=== PATIENT | female | born 1990 | race American Indian/Alaskan Native ===

== ENCOUNTER 2017-05-25 20:50 | Emergency (ER) | payer OTHER ==
[2017-05-26 00:02] VITALS: BP 121/72
--- NOTE | 2017-05-26 00:04 | Emergency Department Report ---
ED N/V/D HPI - General Chief complaint: Nausea/Vomiting/Diarrhea Stated complaint: VOMITING Time Seen by Provider: 05/25/17 23:46 Source: patient Mode of arrival: Ambulatory Limitations: No Limitations - History of Present Illness Initial comments: 26-year-old -Stateless female that reports she is 12 weeks comes in stating that about 1830 she she had nausea onset she took Zofran and states vomited 20 minutes after taking it. Her last vomitus was around 8:30. She states that it was thick mucus with blood tinge. She denies any drooling no distress no fever no chills no abdominal pain no dizziness no cough no cramping or vaginal bleeding or vaginal pain. She does admit to a sore throat. Denies any cold-like symptoms. Past medical history of nothing current medications Zofran and vitamins says no known drug allergies. Her OB provider is Dr. Lopez at [facility]. Her last visit was last week which include her first visit. MD complaint: nausea, vomiting -: This evening Time: 20:30 Description of Vomiting: bilious, blood-streaked Associated Abdominal Pain: No Consistency: intermittent Improves with: none Worsens with: none - Related Data Previous Rx's Medication Instructions Recorded Last Taken Type Judie Root [Judie] 250 mg PO TID PRN #30 capsule 05/26/17 Unknown Rx Allergies Allergy/AdvReac Type Severity Reaction Status Date / Time No Known Allergies Allergy Unverified 05/25/17 20:52 ED Review of Systems ROS: Stated complaint: VOMITING Other details as noted in HPI Constitutional: denies: chills, fever Eyes: denies: eye pain, eye discharge, vision change ENT: throat pain Respiratory: denies: cough, shortness of breath, wheezing Cardiovascular: denies: chest pain, palpitations Endocrine: no symptoms reported Gastrointestinal: nausea, vomiting Genitourinary: denies: urgency, dysuria, discharge Musculoskeletal: denies: back pain, joint swelling, arthralgia Skin: denies: rash, lesions Neurological: denies: headache, weakness, paresthesias Psychiatric: denies: anxiety, depression Hematological/Lymphatic: denies: easy bleeding, easy bruising ED Past Medical Hx - Past Medical History Previous Medical History?: No - Surgical History Past Surgical History?: No - Social History Smoking Status: Current Every Day Smoker Substance Use Type: None - Medications Home Medications: Home Medications Medication Instructions Recorded Confirmed Last Taken Type Judie Root [Judie] 250 mg PO TID PRN #30 capsule 05/26/17 Unknown Rx ED Physical Exam - General Limitations: No Limitations General appearance: alert, in no apparent distress - Head Head exam: Present: atraumatic, normocephalic - Eye Eye exam: Present: normal appearance - ENT ENT exam: Present: mucous membranes moist, TM's normal bilaterally - Expanded ENT Exam Expanded Mouth exam: Present: normal external inspection, tongue normal. Absent: drooling, trismus, muffled voice Teeth exam: Present: normal inspection Throat exam: Positive: tonsillar erythema. Negative: tonsillomegaly, tonsillar exudate - Neck Neck exam: Present: normal inspection. Absent: tenderness, lymphadenopathy - Respiratory Respiratory exam: Present: normal lung sounds bilaterally. Absent: respiratory distress - Cardiovascular Cardiovascular Exam: Present: regular rate, normal rhythm. Absent: systolic murmur, diastolic murmur, rubs, gallop - GI/Abdominal GI/Abdominal exam: Present: soft, normal bowel sounds - Extremities Exam Extremities exam: Present: normal inspection - Neurological Exam Neurological exam: Present: alert, oriented X3 - Psychiatric Psychiatric exam: Present: normal affect, normal mood - Skin Skin exam: Present: warm, dry, intact, normal color. Absent: rash ED Course Vital Signs 05/25/17 20:52 Temperature 98.5 F Pulse Rate 93 H Respiratory 16 Rate Blood Pressure 122/77 O2 Sat by Pulse 99 Oximetry ED Medical Decision Making - Medical Decision Making Patient's been evaluated by this provider fast track. Patient has had no more nausea or vomiting since being here in the emergency room. Patient's vitals are stable. Rapid strep test negative. Discussed with patient that she probably got a little irritation to the back of her throat from vomiting. I discussed the patient that she can try taking judie drops, fresh judie boiled with Tea which is known to help with the hyper emesis. Discussed with patient to inform her [employer] provider that she was seen here on Friday. So they can evaluate her. Patient verbalized understanding. Critical care attestation.: If time is entered above; I have spent that time in minutes in the direct care of this critically ill patient, excluding procedure time. ED Disposition Clinical Impression: Hyperemesis arising during Disposition: DC-01 TO HOME OR SELFCARE Is pt being admited?: No Does the pt Need Aspirin: No Condition: Stable Instructions: Hyperemesis Gravidarum (ED) Additional Instructions: Please take judie root capsules as needed for nausea and vomiting. Please follow up with her primary care provider/[employer] to be reevaluated if nausea and vomiting continues. Prescriptions: Judie Root [Judie] 250 mg PO TID PRN #30 capsule PRN Reason: Vomiting Referrals: PRIMARY CARE, [Primary Care Provider] - 3-5 Days [facility] [Provider Group] - 3-5 Days Forms: Work/School Release Form(ED), Accompanied Note
== END 2017-05-26 00:15 | disposition home or self-care (01) ==
LOC: ED 20:50
DX: O21.8 Other vomiting complicating pregnancy (principal); O99.331 Smoking (tobacco) complicating pregnancy, first trimester; F17.200 Nicotine dependence, unspecified, uncomplicated; Z3A.12 12 weeks gestation of pregnancy
CPT/HCPCS: 87116; 87430; 99283